=== PATIENT | male | born 1960 | race Caucasian/White ===

== ENCOUNTER 2019-09-13 07:01 | Day surgery (SDC) | payer BC ==
[2019-09-10 11:20] VITALS: BMI 33.5
[2019-09-10 11:58] LABS: Absolute Lymphocytes (CBC) 1.6 K/uL (0.7-4.9); Hematocrit 41.2 % (39.6-49.0); MPV 8.4 fL (7.6-11.3); RBC Red Blood Cell Count 4.36 M/uL (4.33-5.43)
--- NOTE | 2019-09-10 12:07 | RAD REPORT ---
EXAM DESCRIPTION: RAD - Chest Pa And Lat (2 Views) - 09/10/2019 11:59 am CLINICAL HISTORY: PRE OP LEFT HEART CATH Chest pain. COMPARISON: <Comparisons> FINDINGS: The lungs are clear. The heart is upper limit of normal in size. No displaced fractures. IMPRESSION: No acute or concerning finding suspected.
[2019-09-10 12:27] LABS: Protime INR 0.89
[2019-09-13] MEDS ORDERED: HEPA 1000U/500MLS 2,000 UNIT/1,000 ML BAG IV ONE (07:06)
[2019-09-13] MEDS ORDERED: LIDOCAINE 1% MPF 30 ML VIAL ONE (07:06)
[2019-09-13] MEDS ORDERED: NA CHLORIDE 0.9% 500 ML ONE (07:13)
--- OUTSIDE RECORDS SUMMARY | 2019-09-13 07:28 | XMS REPORT | Encounter Summary ---
:1960 Author Care Team Providers Name Role Phone Marco Ansari MD Primary Care Provider [phone] Reason for Visit Cough Instructions 1. Acute bronchitis Kenalog 40 mg/mL suspension for injection promethazine 6.25 mg-codeine 10 mg/5 mL syrup doxycycline hyclate 100 mg capsule Discussion Note RTC for any other concerns Patient educational handouts: No information available. Plan of Care Patient Instructions medications as directed; push fluids and ensure rest Reminders Provider Appointments None recorded. Lab None recorded. Referral None recorded. Procedures None recorded. Surgeries None recorded. Imaging None recorded. Medications Name Start Date Benicar 5 mg tablet Take 1 tablet every day by oral route. doxycycline hyclate 100 mg capsule Take 1 capsule twice a day by oral route for 10 days. hydrochlorothiazide small dose promethazine 6.25 mg-codeine 10 mg/5 mL syrup Take 5 mL every 6 hours by oral route as needed. Medications Administered None recorded. Vitals Height Weight BMI Blood Pressure 71 in 251 lbs 7 oz 35.1 kg/m2 149/85 mm[Hg] Lab Results None recorded. Allergies Code Code System Name Reaction Severity Status Onset NKDA Problems Name Status Onset Date Source Eustachian Tube Disorder Active Encounter Otitis Media Active Encounter Acute Upper Respiratory Infection Active Encounter Sinusitis Active Encounter Procedures None recorded. Vaccine List None recorded. Social History Smoking Status Current Some Day Smoker Past Encounters 12/23/2018 Acute Bronchitis Camelia Sheffield [employer]: [address] [facility], [address], [place] [address], Ph. History of Present Illness Note: pt to clinic for cough, congestion x 2 weeks; he states symptoms began to improve and then got worse; he reports thick colored mucous; he reports wheezing and shortness of breath; he has been taking mucinex and claritin d; he started old rx of amoxicillin; only had 2 doses from left over script; denies fever Review of Systems General Adult ROS Reported By: Patient Constitutional: Constitutional: no fever ENMT: Ears: no ear pain. Nose: no nose/sinus problems. Mouth/Throat: sore throat Cardiovascular: Cardiovascular: no chest pain Respiratory: Respiratory: cough, wheezing, shortness of breath Gastrointestinal: Gastrointestinal: no abdominal pain, no vomiting, no diarrhea Neurologic: Neurologic: no dizziness, no headaches Endocrine: Endocrine: fatigue Allergic/Immunologic: Allergy/Immunologic: no runny nose, no sinus pressure Physical Exam Maryam Brief Adult Exam - M/F Reported By: Patient Constitutional: General Appearance: healthy-appearing, well-nourished, well-developed. Level of Distress: NAD. Ambulation: ambulating normally Psychiatric: Mental Status: active and alert ENMT: Ears: EACs clear, TMs clear. Nose: nasal passages clear. Oropharynx: moist mucous membranes, no erythema, no exudates Neck: Lymph Nodes: cervical LAD Lungs: Auscultation: breath sounds normal, expiratory wheezing; right lower lobe Cardiovascular: Heart Auscultation: RRR, normal S1, normal S2, no murmurs
[2019-09-13] MEDS ORDERED: HEPARIN 5000 UNIT/ML 1 ML VIAL ONE (07:48)
[2019-09-13] MEDS ORDERED: FENTANYL CITR 100 MCG/2 ML ONE (07:48)
[2019-09-13] MEDS ORDERED: MIDAZOLAM HCL 2 MG/2 ML INJ ONE (07:48)
[2019-09-13] MEDS ORDERED: NICARDIPINE HCL 25 MG/10 ML IV ONE (07:48)
[2019-09-13] MEDS ORDERED: ATROPINE SULF 1 MG/10 ML SYR IV ONE (07:49)
[2019-09-13] MEDS ORDERED: NA CHLORIDE 0.9% 0 ML ONE (07:49)
[2019-09-13] MEDS ORDERED: NITROGLYCERIN 100 MCG/ML SYR (for cath lab use only) IV ONE (07:49)
[2019-09-13] MEDS ORDERED: NITROGLYCERIN/D5W 25 MG/250 ML BTL IV ONE (07:49)
[2019-09-13 09:27] VITALS: TEMP 98.2; O2SAT 97
[2019-09-13 10:25] VITALS: BP 144/42
--- NOTE | 2019-09-13 20:22 | OP ---
Surgeon: Jacob Martinez MD Oenologist: assistant tennis professional, Annamaria Franco. Identification: A 58-year-old man. Procedures: Left heart catheterization, coronary and left ventricular angiography. Procedure Findings: The patient has normal coronary arteries except for mild luminal irregularities. Normal left ventricular ejection fraction. Normal segmental wall motion. Normal pressures. Left ventricular end-diastolic pressure was 8. Description Of Procedure: The patient was brought to the cardiac label tacker in a fasting state. He wa s believed to have unstable angina. He gave us informed consent. He was prepared and draped in the usual sterile fashion. Right radial approach was used. We anesthetized the skin over the right radi al artery with 2 cc of 1% lidocaine. The artery was entered using a 21-gauge needle, cannulated with a 0.021 inch diameter guidewire and then a 6-[place] [employer] radial sheath was placed. Sheath was flu shed and a radial cocktail was administered through the sheath consisting of nicardipine, heparin, ni troglycerin. We directed a TIG catheter into the ascending aorta using fluoroscopy and a short radiu s J-tip Glidewire. We were able to angiogram right and left coronaries and left ventricle without an y catheter exchanges. When the procedure was finished, the decision was made not to do any further i nterventions or testing. We removed the catheter over a J-wire. We flushed the sheath, removed, and closed the arteriotomy using a TR Band. Estimated Blood Loss: 5 cc. Complications: No complications. FAISAL/KARIE Voice ID: [id number] Report ID: [id number]
== END 2019-09-13 10:26 | disposition home or self-care (01) ==
LOC: CCL 07:01
PROVIDERS: ATTEND Internal Medicine
DX: R07.89 Other chest pain (principal); I10 Essential (primary) hypertension; E78.2 Mixed hyperlipidemia; G47.30 Sleep apnea, unspecified; Z87.891 Personal history of nicotine dependence; Z79.82 Long term (current) use of aspirin
CPT/HCPCS: 85025; 80048; 36415; 85610; 85730; 71046; 93458; C1893; J1644; J2250; J3010; J7040; J0583